=== PATIENT | female | born 1970 | race Caucasian/White ===

== ENCOUNTER 2020-09-10 07:58 | Outpatient (CLI) | payer OTHER, SELFPAY ==
--- NOTE | ~2020-09-10 | MM_ITS ---
EXAMINATION: MM screening sonal BI w christiano HISTORY: Screening TECHNIQUE: Craniocaudal and mediolateral oblique 3-D tomosynthesis images were obtained and synthetic 2-D images were generated. CAD analysis was submitted and interpreted. COMPARISON: Comparison to multiple prior studies sequentially, with oldest reviewed study dated 09/15. BREAST PARENCHYMAL COMPOSITION: There are scattered areas of fibroglandular density. FINDINGS: There is no evidence of suspicious mass, calcification, or architectural distortion to sugg est malignancy in either breast. There has been no suspicious interval change. IMPRESSION: 1. No mammographic evidence of malignancy. 2. Recommend routine screening mammography in one year. BI-RADS Category 1: Negative Reviewed, dictated and finalized at location A. ING MACHINE OPERATOR
== END 2020-09-10 07:59 | disposition home or self-care (01) ==
LOC: ANHIMG 08:00
PROVIDERS: PCP Family Medicine; Visit Provider Obstetrics & Gynecology
DX: Z12.31 Encounter for screening mammogram for malignant neoplasm of breast (principal)
CPT/HCPCS: 77063; 77067

== ENCOUNTER → 2021-06-09 15:07 | Outpatient (CLI) | payer OTHER, SELFPAY ==
--- NOTE | ~2021-06-09 | CT_ITS ---
EXAMINATION: CT abdomen pelvis wo con DATE: 06/09/2021 15:21 INDICATION: Gross hematuria. History of kidney stones. TECHNIQUE: Computed tomography (CT) of the abdomen and pelvis was performed without intravenous contr ast. Automated exposure control and iterative reconstruction technique were employed. Exam dose: 101 2.57 mGy-cm total exam DLP. COMPARISON: 02/06/2018 KUB FINDINGS: The lung bases are clear. Normal heart size. No pericardial or pleural effusion. There is patchy hepatic steatosis. No apparent hepatic space-occupying mass lesion is noted. Status post cholecystectomy. No bile duct or pancreatic duct dilatation. No pancreatic mass lesion or calcification. Normal splenic size. Normal morphology of the adrenal glands. Approximate 3 mm nonobstructing upper pole left renal calculus. Pinpoint lower pole nonobstructing le ft renal calculus. There are at least 2 calculi in the left renal pelvis, measuring approximately 4 mm and 7 mm cyst. No ureteral calculus or hydroureteronephrosis is noted on either side. No urinary bladder calculus. T he urinary bladder is not very distended, appearing unremarkable. The uterus and adnexal areas are un remarkable. Normal caliber of the abdominal aorta. No intraperitoneal or retroperitoneal or pelvic mass lesion or adenopathy or ascites. Status post appendectomy. Diverticulosis of the left colon; no CT evidence of diverticulitis. No ev l obstruction, bowel wall thickening, pneumatosis or intraperitoneal free air. Very small fat-containing umbilical hernia. No suspicious osteolytic or osteoblastic lesions are noted. IMPRESSION: Patchy hepatic steatosis 3 mm nonobstructing upper pole left renal calculus Pinpoint lower pole nonobstructing left renal calculus At least 2 left renal pelvic nonobstructing calculi No ureteral calculi or hydroureteronephrosis Status post cholecystectomy Status post appendectomy Diverticulosis of the colon; no CT evidence of diverticulitis Reviewed, dictated and finalized at Location A. Reviewed, dictated and finalized at location A.
== END ==
PROVIDERS: PCP Family Medicine; Visit Provider Physician Assistant
DX: R31.9 Hematuria, unspecified (principal); K76.0 Fatty (change of) liver, not elsewhere classified; N20.0 Calculus of kidney; Z90.49 Acquired absence of other specified parts of digestive tract; K57.90 Diverticulosis of intestine, part unspecified, without perforation or abscess without bleeding
CPT/HCPCS: 74176

== ENCOUNTER → 2021-06-27 11:58 | Outpatient (CLI) | payer OTHER, SELFPAY ==
--- NOTE | ~2021-06-27 | US_ITS ---
EXAMINATION: US retroperitoneal comp EXAM DATE: 06/27/2021 12:30 INDICATION: Left flank pain. Hematuria. TECHNIQUE: Multiple grayscale and Doppler images of the kidneys were obtained (by a technologist who performed the scan) and subsequently reviewed. There is no prior study for comparison. FINDINGS: Right kidney: There is normal contour and echogenicity. It measures 9.9 x 5.5 x 5.4 centimeters. Th ere are no focal renal lesions identified. There is no hydronephrosis. Left kidney: There is normal contour and echogenicity. It measures 11.6 x 6.5 x 5.7 centimeters. Th ere are no focal renal lesions identified. Mild left hydronephrosis. Bladder unremarkable. IMPRESSION: 1. Mild left hydronephrosis. Reviewed, dictated and finalized at location B.
--- NOTE | ~2021-06-27 | XR_ITS ---
EXAMINATION: XR abdomen/kub 1V EXAM DATE: 06/27/2021 12:43 INDICATION: Left flank pain. History kidney stones. TECHNIQUE: Frontal projection of the upper abdomen, frontal projection lower abdomen/pelvis for inter pretation. Comparison is made to prior examination from 02/06/2018. FINDINGS: There is expected amount of colonic stool and gas. No small bowel dilation, nonobstructiv e bowel gas pattern. There are no suspicious calcifications identified. There is no organomegaly suspected. There are mild bony degenerative changes. There are cholecystectomy clips. Lung bases ar e clear. IMPRESSION: Unremarkable abdomen x-ray exam. Reviewed, dictated and finalized at location B.
== END ==
PROVIDERS: PCP Family Medicine; Visit Provider Nurse Practitioner Adult Health
DX: R10.9 Unspecified abdominal pain (principal); N13.30 Unspecified hydronephrosis
CPT/HCPCS: 74018; 76770

== ENCOUNTER → 2021-07-10 13:43 | Outpatient (CLI) | payer OTHER, SELFPAY ==
--- NOTE | ~2021-07-10 | CT_ITS ---
EXAMINATION: CT abdomen pelvis wo/w con DATE: 07/10/2021 15:02 INDICATION: Gross hematuria. TECHNIQUE: Computed tomography (CT) of the abdomen and pelvis was performed without and with intraven ous contrast using a total of 130 mL Omnipaque-350 intravenous contrast with a double-bolus technique for simultaneous opacification of the renal parenchyma and renal collecting system. Automated exposu re control and iterative reconstruction technique were employed. The dose-length product was 2104.87 mGy-cm. COMPARISON: CT abdomen and pelvis 06/09/2021 FINDINGS: The visualized portions of the lung bases demonstrate mild atelectasis. No pleural effusion. The hear t size is normal. No pericardial effusion. There is diffuse hepatic steatosis. There are changes of c holecystectomy. The spleen, pancreas, and adrenal glands are normal. There is cortical thinning of ri ght kidney. There are cysts in the kidneys measuring up to 9 mm on the left. The right ureter is not well opacified distally, but is normal. There are 2 stones in left kidney measuring up to 3 mm. There is mild left hydronephrosis and hydroureter. There is a 5 mm stone in proximal left ureter. There is a 4 mm stone in distal left ureter. The bladder is not well distended. There is diverticulosis of th e colon without evidence of diverticulitis. There are changes of appendectomy. There are no pathologi esperanza enlarged lymph nodes. There is no free intraperitoneal fluid. There is mild thoracolumbar spond ylosis. IMPRESSION: 1. 5 mm and 4 mm stones in left ureter with mild left hydronephrosis and hydroureter. 2. Small nonobstructing left kidney stones. Reviewed, dictated and finalized at location A. DE ATTENDANT IMPRESSION: 1. 5 mm and 4 mm stones in left ureter with mild left hydronephrosis and hydrou reter. 2. Small nonobstructing left kidney stones.
--- NOTE | ~2021-07-10 | XR_ITS ---
EXAMINATION: XR abdomen/kub 1V DATE: 07/10/2021 14:32 INDICATION: Gross hematuria. TECHNIQUE: A supine view of the abdomen on 2 radiographs was obtained. COMPARISON: CT abdomen and pelvis 07/10/2021 FINDINGS: There are no dilated loops of bowel. There is an 8 x 5 mm stone in proximal left ureter. Th ere is a 4 mm stone in distal left ureter. There is a phlebolith in left pelvis. There is a 3 mm ston e in left kidney. Surgical clips in the right upper quadrant are likely from cholecystectomy. IMPRESSION: 1. Stones in left ureter and left kidney. Reviewed, dictated and finalized at location A. ROOM COURIER
[2021-07-10 14:33] LABS: Estimated Glomerular Filt Rate > 60
== END ==
PROVIDERS: PCP Family Medicine; Visit Provider Nurse Practitioner Adult Health
DX: R31.0 Gross hematuria (principal); N20.0 Calculus of kidney; N20.1 Calculus of ureter; N13.30 Unspecified hydronephrosis
CPT/HCPCS: 74018; 74178; Q9967

== ENCOUNTER → 2021-07-10 13:46 | Outpatient (CLI) | payer OTHER, SELFPAY ==
--- NOTE | ~2021-07-10 | XR_ITS ---
EXAMINATION: XR lumbar spine 6V w bending EXAM DATE: 07/10/2021 14:32 INDICATION: M54.9 - Dorsalgia, unspecified . TECHNIQUE: Lumber spine frontal, lateral, bilateral oblique projections. Coned down frontal and lat eral L5-S1 lumbar projections for interpretation. There is no prior study for comparison. FINDINGS: There is moderate lower lumbar, mild upper lumbar facet arthropathy. Mild lumbar dextroscol iosis. There are cholecystectomy clips. There is 2 mm anterolisthesis L4 on L5 on the neutral and ext ension projections which may increase to 3 mm on the flexion projection. No spondylolysis. Sacrum, sa croiliac joints, sacral arcuate lines are intact. There is mild lumbar disc disease. IMPRESSION: 1. Moderate lower, mild upper lumbar facet arthropathy. 2. Mild lumbar disc disease. 3. L4-5 grade 1 anterolisthesis. Reviewed, dictated and finalized at location A. EL OILER
== END ==
PROVIDERS: PCP Family Medicine; Visit Provider Family Medicine
DX: M54.9 Dorsalgia, unspecified (principal); M12.88 Other specific arthropathies, not elsewhere classified, other specified site; M51.86 Other intervertebral disc disorders, lumbar region; M43.16 Spondylolisthesis, lumbar region
CPT/HCPCS: 72114

== ENCOUNTER 2021-07-14 03:10 | Day surgery (SDC) | payer OTHER, SELFPAY ==
[2021-07-12 15:43] VITALS: BMI 35.4
--- NOTE | 2021-07-12 15:55 | PC.NURSE ---
Report to the Outpatient Waiting Room, entrance under the green pavilion located off [facility], at time 10:00 on date 07/14/21. OR Time: 12:00. - You and your visitor will be asked a series of questions to screen for COVID 19 for your protection. - A mask is required within the hospital. - Only one visitor is allowed at this time. Patient visitors will be guided where to wait when not with patient. Preoperative COVID Testing Requirements: No COVID Test needed if: (proof is required; if not received patient will have Rapid Test prior to entry) - Patient has received COVID Vaccine at least 14 days prior to procedure date or - Patient has positive COVID test result within last 90 days of surgery date. COVID Test needed if above criteria is not met If not COVID vaccinated a COVID test must be conducted within 72 hours of surgery and patient is asked to isolate self from time of testing until procedure. You will go to the [facility] [facility] for your COVID testing. The [employer] [facility] site is located at the corner of [address] [facility]. You will only be called if COVID results are positive and your surgeon may reschedule your elective surgery date. Patients may have clear liquids (water, carbonated beverages, clear teas, apple juice) until 3 hours prior to surgery with a maximum of 20 ounces. - No food from midnight until time of surgery - Infants may have breast milk until 4 hours before surgery, infant formula 6 hours prior to surgery. - Children will be allowed to drink immediately following surgery. If applicable, please bring a bottle or sippy cup to assist with drinking. Juice, water, soda, and popsicles are readily available. For infants on formula, please bring formula the day of surgery. Pacifiers are allowed. Take the following medications with a SIP of water the morning of surgery: ESTRADIOL, LEVOTHYROXINE, METOPROLOL Medications to discontinue per physician: VITAMINS/SUPPLEMENTS Date to take last dose: IMMEDIATELY Please no make-up, nail mozambican, hairspray, perfume, deodorant, or body powder the day of surgery. No jewelry (including any body piercings) or valuables the day of surgery, leave them at home. Please take a shower or bath the night before, or the morning of, surgery with an antibacterial soap. Wear comfortable, loose fitting clothing. Children are encouraged to wear pajamas. - Jewelry must be removed prior to entering the operating room. Rings and piercings that are not removed may be cut off. - The hospital will not accept responsibility for valuables. - Please leave all valuables, including medications, at home the day of surgery. If you are going home after surgery, a licensed special needs bus driver must drive you home. - NO public transportation without another adult. - We recommend that an adult stay with you for 24 hours following discharge. - We also recommend that you do not drive, make important decision, drink alcoholic beverages, or take any drugs that were not prescribed by your health care provider for at least 24 hours after your discharge time. For Pediatric surgeries, we recommend two adults accompany the child home (only one inside the building at this time). Follow any additional instructions given to you from your surgeon. Telephone instructions given to BENJAMÍN JACKSON and asked if any additional questions and then verbalized understanding. Patient advised to call surgeon office or pre surgery nurse liaison [phone] if any additional questions.
[2021-07-14] VITALS (8 sets, daily range): BP systolic 116–137; BP diastolic 71–77; PULSE 59–68; RESP 16–18; TEMP 36.3–36.7; O2SAT 94–100
--- NOTE | ~2021-07-14 | XR_ITS ---
EXAMINATION: XR retrograde pyelo w/stent LT DATE: 07/14/2021 11:50 INDICATION: Left internal ureteral stent placement TECHNIQUE: Fluoroscopic images from a left internal ureteral stent placement are submitted for review . 20 seconds of fluoroscopy time. FINDINGS: No prior studies for comparison. There is a left double-J internal ureteral stent projecting in expected position, with proximal [place] loop at the level of the renal pelvis and distal loop in the pelvis within the bladder lumen. IMPRESSION: 1. Left internal ureteral stent placement. Please refer to real-time procedural findings for detail s. Reviewed, dictated and finalized at location A. D TRANSIT OPERATOR IMPRESSION: 1. Left internal ureteral stent placement. Please refer to real-time procedur al findings for details.
--- NOTE | ~2021-07-14 | XR_ITS ---
EXAMINATION: XR abdomen/kub 1V INDICATION: Left kidney and ureteral stones TECHNIQUE: Supine views of the abdomen were obtained on 2 radiographs. COMPARISON: 07/10/2021 FINDINGS: The previously described stone in the mid ureter is not well demonstrated. There is a possi ble 4 mm stone projecting in the expected location of the left distal ureter. Punctate left nephrolit hiasis is noted. The bowel gas pattern is normal. The visualized lung bases are clear. Cholecystectom y clips are present in the right upper quadrant. IMPRESSION: 1. Possible 4 mm left distal ureteral stone. Reviewed, dictated and finalized at location D. RETORT OPERATOR
--- NOTE | 2021-07-14 09:19 | ECG_ITS ---
Measurements Intervals [place] Rate: 64 P: 12 VT: 187 QRS: 9 QRSD: 100 T: 26 QT: 421 QTc: 435 Interpretive Statements SINUS RHYTHM VOLTAGE CRITERIA FOR LVH BORDERLINE ST-T WAVE ABNORMALITY- ANT/INF LEADS BASELINE ARTIFACT- III, AVF BORDERLINE ECG Electronically Signed On 07-14-2021 15:19:46 ENTRY LEVEL ASSISTANT MANAGER by Patricio Álvarez D.O.
[2021-07-14] MEDS: LACTATED RINGERS 1,000 ML 30 ML IV CONT ×2 (09:45→12:05)
--- NOTE | 2021-07-14 09:57 | WPDANESEPPF ---
Anes - Initial Pre Proc Eval Procedure: Operation Date: 07/14/21 12:00 Proposed Procedures p Left Extracorporeal Shock Wave Lithotripsy - Bari Gee MD s Cystoscopy - Bari Gee MD Date/Time: 07/14/21 09:57 Surgeon: Bari Gee MD Pre Op Diagnosis: kidney stones Patient Data Age: 51 Gender: F Height: 1.65 m Weight: 96.62 kg Allergies Allergy/AdvReac Type Severity Reaction Status Date / Time amitriptyline Allergy Unknown Palpitation Verified 07/14/21 09:30 s doxycycline Allergy Unknown rash pin Verified 07/12/21 15:39 point dots arm Home Medications Medication Instructions Recorded Confirmed Type cetirizine 10 mg tablet 10 mg PO DAILY 08/10/19 07/12/21 History estradiol-norethindrone acet 0.5 1 tablet PO DAILY 08/10/19 07/12/21 History mg-0.1 mg tablet triamterene 37.5 0.5 tablet PO DAILY #90 tablet 04/13/20 07/12/21 Rx mg-hydrochlorothiazide 25 mg tablet atorvastatin 10 mg tablet See Rx Instructions .ROUTE 02/07/21 07/12/21 Rx .COMPLEX #90 tablet metoprolol tartrate 25 mg tablet See Rx Instructions .ROUTE 02/07/21 07/12/21 Rx .COMPLEX #180 tablet levothyroxine 100 mcg tablet See Rx Instructions .ROUTE 03/07/21 07/12/21 Rx .COMPLEX #90 tablet dextroamphetamine-amphetamine ER 30 mg PO DAILY #30 cap 06/27/21 07/12/21 Rx 30 mg 24hr capsule,extend release ascorbic acid (vitamin C) [Vitamin 500 mg PO DAILY 07/12/21 07/12/21 History C] cholecalciferol (vitamin D3) 125 mcg PO DAILY 07/12/21 07/12/21 History [Vitamin D3] multivitamin 1 tablet PO DAILY 07/12/21 07/12/21 History zinc 50 mg PO DAILY 07/12/21 07/12/21 History Laboratory Tests 07/14/21 07/14/21 09:52 09:52 PT Pending INR Pending APTT Pending Sodium Pending Potassium Pending Chloride Pending Carbon Dioxide Pending Anion Gap Pending BUN Pending Creatinine Pending Estim Creat Clear Calc Pending Estimated GFR Pending Glucose Pending Calcium Pending Patient hx anesthesia problems: none Family hx anesthesia problems: none Results Review: All pre-operative results and documents have been reviewed as part of the pre-operative evaluation. [facility] Past Medical History Medical History Hx of migraines Hypothyroidism (acquired) Mammogram normal (~10/31/13) Mixed hyperlipidemia Normal Papanicolaou smear (~07/06/11) Situational anxiety Surgical History Surgical History History of lithotripsy (~01/24/18) Family History Family History Mother Hypertension Diabetes mellitus Family history of elevated blood lipids Grandparent Family history of malignant neoplasm of kidney Family history of lung cancer Father Hypertension Family history of elevated blood lipids Social History Social History Smoking status: Never smoker Alcohol intake: never Substance use: never Substance use type: does not use Living arrangements: with family Spiritual care concerns: No Anes - Eval Final PreProcedure Day of Procedure 07/14/21 09:57 Patient weight: obese Heart: regular rate and rhythm Lungs: clear to auscultation Airway: Mallampati scale class II Neurological: alert and oriented Last oral intake: >/= 8 hours ASA classification: III Emergent: no Anesthetic plan: proceed Anesthesia type and monitoring: general LMA and standard monitoring Results Review: All pre-operative results and documents have been reviewed as part of the pre-operative evaluation. Informed Consent: The patient's anesthetic plan and its attendant risks and benefits were discussed with the patient/family/POA. Questions were solicit
[2021-07-14 10:08] LABS: Partial Thromboplastin Time 31.7 SECONDS (22.3-36.8); Prothrombin Time 12.7 Seconds (11.1-14.7)
[2021-07-14 10:11] LABS: Anion Gap 6 mmol/L (8-16); Blood Urea Nitrogen 14 mg/dL (7-17); Calcium 9.5 mg/dL (8.4-10.2); Carbon Dioxide 32 mmol/L (22-30); Chloride 101 mmol/L (98-107); Estimated CRCL calculation 94 ml/min; Estimated Glomerular Filt Rate > 60; Glucose 109 mg/dL (65-110); Potassium 3.6 mmol/L (3.4-5.0); Sodium 139 mmol/L (137-145)
--- NOTE | 2021-07-14 11:03 | WPDHPUPDATE1 ---
History and Physical Update Update Date/Time: 07/14/21 11:03 History and Physical has been reviewed, including an updated exam of the patient. There are NO changes in the patient's condition. Risks, benefits, and alternatives have been discussed and questions answered. Patient agrees to proceed with procedure. Left proximal ureteral stone a longer visualized on KUB. As such will proceed with cystoscopy, left retrograde pyelogram, left ureteroscopy with stone extraction, possible laser, stent placement
[2021-07-14] MEDS: ceFAZolin 2 GM/D5W 50 ML 2 GM/50 ML BAG IVPB (11:09)
[2021-07-14] MEDS: LIDOCAINE HCL 2% GEL UROJET 10 ML PKG MUCOUS MEM (11:30)
--- NOTE | 2021-07-14 11:51 | W.PM.PROC2 ---
Procedure Note - Detailed Date of Procedure 07/14/21 Pre-op Diagnosis Left ureteral stones 8 mm proximal as well as 4 mm distal Post-op Diagnosis same Procedure Performed Cystoscopy, left retrograde pyelogram, left ureteroscopy with stone extraction, holmium laser, stent placement 4.8 [place] contour Surgeon Bari Gee MD Description of Procedure Patient is taken to the operative suite and correctly identified. Once anesthesia was obtained was placed in dorsal lithotomy position and prepped and draped usual sterile fashion. Twenty-two [place] scope was inserted the bladder. There is no tumors noted. Left orifice was scan with a guidewire. Rigid ureteral scope was inserted. A 4-5 mm stone in the distal ureter was grasped with an escape basket retrieved entirety and sent for analysis. I then reinserted the ureteral scope. The 8 mm stone was lodged in the more proximal ureter. Using a 273 micron fiber we fragmented stone multiple pieces and then retrieved them and sent them for analysis. Pyelogram was then performed to confirm placement of the stent. 4.8 [place] contour stent was then placed with the proximal end coiled in the renal pelvis and the distal in the bladder. Bladder was drained. 2% viscous lidocaine was inserted urethra and patient is taken recovery stable condition. Patient will follow up in a week's time for stent removal. Drains Yes Packing No Pathology yes Complications No immediate complications Condition stable Disposition PACU
[2021-07-14] MEDS: oxyCODONE HCL (*CRX) 5 MG TAB IR PO (13:40)
== END 2021-07-14 13:46 | disposition home or self-care (01) ==
PROVIDERS: Anesthesiology; PCP Family Medicine; Visit Provider Urology
PROC: (CPT 50590; principal; 2021-07-14 12:00)
DX: N20.1 Calculus of ureter (principal); E03.9 Hypothyroidism, unspecified; E78.2 Mixed hyperlipidemia; E66.9 Obesity, unspecified; Z68.35 Body mass index [BMI] 35.0-35.9, adult
CPT/HCPCS: 52356; 36415; 74018; 74420; 80048; 82365; 85610; 85730; 87086; 88300; 93005; A9270; C1769; C2617; J0690; J1100; J2250; J2405; J2704; J3010; J7120; Q9966

== ENCOUNTER 2021-11-18 07:58 | Outpatient (CLI) | payer OTHER, SELFPAY ==
--- NOTE | ~2021-11-18 | MM_ITS ---
EXAMINATION: MM screening sonal BI w christiano HISTORY: Screening mammogram TECHNIQUE: Craniocaudal and mediolateral oblique 3-D tomosynthesis images were obtained and synthetic 2-D images were generated. CAD analysis was submitted and interpreted. COMPARISON: September 10, 2020, August 15, 2019, May 03, 2018 bilateral screening mammogram exami [place] BREAST PARENCHYMAL COMPOSITION: There are scattered areas of fibroglandular density. FINDINGS: There is no evidence of suspicious mass, calcification, or architectural distortion to sugg est malignancy in either breast. There has been no suspicious interval change. IMPRESSION: 1. No mammographic evidence of malignancy. 2. Recommend routine screening mammography in one year. BI-RADS Category 1: Negative Reviewed, dictated and finalized at location A.
== END 2021-11-18 07:59 | disposition home or self-care (01) ==
LOC: ANHIMG 07:59
PROVIDERS: PCP Family Medicine; Visit Provider Obstetrics & Gynecology
DX: Z12.31 Encounter for screening mammogram for malignant neoplasm of breast (principal)
CPT/HCPCS: 77063; 77067

== ENCOUNTER 2022-07-10 10:58 | Day surgery (SDC) | payer OTHER, SELFPAY ==
[2022-04-17 08:06] VITALS: BMI 36.8
[2022-06-26 10:26] VITALS: BMI 36.6
[2022-07-10 11:19] VITALS: BP 143/88; PULSE 84; RESP 16; TEMP 36.6; O2SAT 100
--- NOTE | 2022-07-10 11:27 | PM.HPGS ---
History of Present Illness History of Present Illness Consent: Risks, benefits, and alternatives have been discussed and questions answered. Patient agrees to proceed with procedure. Chief complaint: Neoplam Screening Narrative: Gi Sanderson is a 52 year old female Presents for screening colonoscopy. Patient's current weight appetite and bowel movements are normal. Patient denies abdominal pain. She has had no bleeding. Family history is noncontributory. Patient presents today for screening colonoscopy. Review of Systems Review of Systems: Review of systems noncontributory. [facility] Past Medical History Medical History Hx of migraines Hypothyroidism (acquired) Mammogram normal (~10/31/13) Mixed hyperlipidemia Normal Papanicolaou smear (~07/06/11) Situational anxiety Surgical History Surgical History History of lithotripsy (~01/24/18) Family History Family History Mother Hypertension Diabetes mellitus Family history of elevated blood lipids Grandparent Family history of malignant neoplasm of kidney Family history of lung cancer Father Hypertension Family history of elevated blood lipids Social History Social History Smoking status: Never smoker Alcohol intake: never Substance use: never Substance use type: does not use Living arrangements: with family Spiritual care concerns: No Meds Home Medications and Allergies Home Medications Medication Instructions Recorded Confirmed Type cetirizine 10 mg tablet 10 mg PO DAILY 08/10/19 07/10/22 History estradiol-norethindrone acet 0.5 1 tablet PO DAILY 08/10/19 07/10/22 History mg-0.1 mg tablet (Lopreeza) ascorbic acid (vitamin C) 500 mg 500 mg PO DAILY 07/12/21 07/10/22 History tablet (Vitamin C) cholecalciferol (vitamin D3) 125 125 mcg PO DAILY 07/12/21 07/10/22 History mcg (5,000 unit) tablet (Vitamin D3) multivitamin 1 tablet PO DAILY 07/12/21 07/10/22 History zinc 50 mg tablet 50 mg PO DAILY 07/12/21 07/10/22 History atorvastatin 10 mg tablet See Rx Instructions .Route 12/19/21 07/10/22 Rx .COMPLEX #90 tabs levothyroxine 100 mcg tablet See Rx Instructions .Route 12/19/21 07/10/22 Rx .COMPLEX #90 tabs metoprolol tartrate 25 mg tablet See Rx Instructions .Route 12/19/21 07/10/22 Rx .COMPLEX #180 tabs triamterene 37.5 See Rx Instructions .Route 12/27/21 07/10/22 Rx mg-hydrochlorothiazide 25 mg tablet .COMPLEX #90 tabs peg 3350-electrolytes 236 240 ml PO Q10M #4,000 mL 04/17/22 07/10/22 Rx gram-22.74 gram-6.74 gram-5.86 gram solution (Golytely) magnesium 200 mg tablet 400 mg PO DAILY 06/26/22 07/10/22 History dextroamphetamine-amphetamine ER 30 mg PO DAILY #30 caps 06/28/22 07/10/22 Rx 30 mg 24hr capsule,extend release (Adderall XR) Allergies Allergy/AdvReac Type Severity Reaction Status Date / Time amitriptyline Allergy Unknown Palpitation Verified 07/10/22 11:15 s doxycycline Allergy Unknown rash pin Verified 07/10/22 11:15 point dots arm Vital Signs Vital Signs - 24 hr 07/10/22 11:19 Temperature 97.9 F Pulse Rate 84 Respiratory Rate 16 Blood Pressure 143/88 H Pulse Oximetry 100 Oxygen Delivery Room Air Exam Narrative: Physical exam reveals patient be alert. Vital signs stable. HEENT exam is unremarkable. Patient is anicteric. Lungs are clear to auscultation and percussion. Heart is without murmur or extra sounds. Abdomen bowel sounds are present soft nontender with no organomegaly. Digital external rectal exam is normal. Assessment and Plan Assessment and plan (1) Encounter for screening colonoscopy: Code(s): Z12.11 - Encounter for screening for malignant neoplasm of colon Status: Acute Assessment and Plan:
--- NOTE | 2022-07-10 11:35 | WPDANESEPPF ---
Anes - Initial Pre Proc Eval Procedure: Operation Date: 07/10/22 12:30 Proposed Procedures p Screening Colonoscopy - Juan David Ye MD Date/Time: 07/10/22 11:35 Surgeon: Juan David Ye MD Pre Op Diagnosis: Neoplam Screening Patient Data Age: 52 Gender: F Height: 1.65 m Weight: 98.1 kg Last Vital Signs Temp 36.6 C 07/10/22 11:19 Pulse 84 07/10/22 11:19 Resp 16 07/10/22 11:19 BP 143/88 H 07/10/22 11:19 Pulse Ox 100 07/10/22 11:19 O2 Del Method Room Air 07/10/22 11:19 Allergies Allergy/AdvReac Type Severity Reaction Status Date / Time amitriptyline Allergy Unknown Palpitation Verified 07/10/22 11:15 s doxycycline Allergy Unknown rash pin Verified 07/10/22 11:15 point dots arm Home Medications Medication Instructions Recorded Confirmed Type cetirizine 10 mg tablet 10 mg PO DAILY 08/10/19 07/10/22 History estradiol-norethindrone acet 0.5 1 tablet PO DAILY 08/10/19 07/10/22 History mg-0.1 mg tablet (Lopreeza) ascorbic acid (vitamin C) 500 mg 500 mg PO DAILY 07/12/21 07/10/22 History tablet (Vitamin C) cholecalciferol (vitamin D3) 125 125 mcg PO DAILY 07/12/21 07/10/22 History mcg (5,000 unit) tablet (Vitamin D3) multivitamin 1 tablet PO DAILY 07/12/21 07/10/22 History zinc 50 mg tablet 50 mg PO DAILY 07/12/21 07/10/22 History atorvastatin 10 mg tablet See Rx Instructions .Route 12/19/21 07/10/22 Rx .COMPLEX #90 tabs levothyroxine 100 mcg tablet See Rx Instructions .Route 12/19/21 07/10/22 Rx .COMPLEX #90 tabs metoprolol tartrate 25 mg tablet See Rx Instructions .Route 12/19/21 07/10/22 Rx .COMPLEX #180 tabs triamterene 37.5 See Rx Instructions .Route 12/27/21 07/10/22 Rx mg-hydrochlorothiazide 25 mg tablet .COMPLEX #90 tabs peg 3350-electrolytes 236 240 ml PO Q10M #4,000 mL 04/17/22 07/10/22 Rx gram-22.74 gram-6.74 gram-5.86 gram solution (Golytely) magnesium 200 mg tablet 400 mg PO DAILY 06/26/22 07/10/22 History dextroamphetamine-amphetamine ER 30 mg PO DAILY #30 caps 06/28/22 07/10/22 Rx 30 mg 24hr capsule,extend release (Adderall XR) Patient hx anesthesia problems: none Family hx anesthesia problems: none Results Review: All pre-operative results and documents have been reviewed as part of the pre-operative evaluation. [facility] Past Medical History Medical History Benign hypertension Hx of migraines Hypothyroidism (acquired) Mammogram normal (~10/31/13) Mixed hyperlipidemia Normal Papanicolaou smear (~07/06/11) Situational anxiety Surgical History Surgical History History of lithotripsy (~01/24/18) Family History Family History Mother Hypertension Diabetes mellitus Family history of elevated blood lipids Grandparent Family history of malignant neoplasm of kidney Family history of lung cancer Father Hypertension Family history of elevated blood lipids Social History Social History Smoking status: Never smoker Alcohol intake: never Substance use: never Substance use type: does not use Living arrangements: with family Spiritual care concerns: No Anes - Eval Final PreProcedure Day of Procedure 07/10/22 11:35 Patient weight: obese Heart: regular rate and rhythm Lungs: clear to auscultation Airway: Mallampati scale class II Neurological: alert and oriented Last oral intake: >/= 8 hours ASA classification: III Emergent: no Anesthetic plan: proceed Anesthesia type and monitoring: general GIVS and standard monitoring Results Review: All pre-operative results and documents have been reviewed as part of the pre-operative evaluation. Informed Consent: The patient's anesthetic plan and its attendant risks and benefits were discussed with the patient
[2022-07-10] MEDS: LACTATED RINGERS 1,000 ML 150 ML IV CONT (11:36)
[2022-07-10 12:23] VITALS: BP 113/69; PULSE 74; RESP 12; O2SAT 100
[2022-07-10 12:33] VITALS: BP 112/65; PULSE 75; RESP 12; O2SAT 100
[2022-07-10 12:43] VITALS: BP 124/71; PULSE 76; RESP 13; O2SAT 100
--- NOTE | 2022-07-10 12:53 | WPDANESPN ---
Anes - Prog Note Post-Op Date/Time: 07/10/22 12:53 Cardiovascular status: normal Respiratory status: normal Airway patency: baseline Mental status: baseline Post-Op hydration status: normal Vital Signs: Last Vital Signs Temp 36.6 C 07/10/22 11:19 Pulse 75 07/10/22 12:33 Resp 12 07/10/22 12:33 BP 112/65 07/10/22 12:33 Pulse Ox 100 07/10/22 12:33 O2 Del Method Room Air 07/10/22 12:33 Pain Score (VAS): 0 I/O: Intake & Output 07/09/22 07/10/22 07/10/22 23:59 07:59 15:59 Intake Total 300 Balance 300 Patient Feedback: Patient satisfied with anesthetic care.
== END 2022-07-10 13:00 | disposition home or self-care (01) ==
PROVIDERS: PCP Emergency Medicine; Visit Provider Internal Medicine Gastroenterology
PROC: 0DJD8ZZ Inspection of Lower Intestinal Tract, Via Natural or Artificial Opening Endoscopic (ICD-10-PCS; CPT 45378; principal; 2022-07-10 12:30)
DX: Z12.11 Encounter for screening for malignant neoplasm of colon (principal)
CPT/HCPCS: 45378

== ENCOUNTER 2022-11-26 15:32 | Outpatient (CLI) | payer OTHER, SELFPAY ==
--- NOTE | 2022-11-26 15:30 | ECG_ITS ---
Measurements Intervals [place] Rate: 74 P: 35 SC: 160 QRS: 8 QRSD: 101 T: 30 QT: 383 QTc: 426 Interpretive Statements SINUS RHYTHM LEFT VENTRICULAR HYPERTROPHY BASELINE ARTIFACT- I, II, III, AVR, AVL, AVF, V4-V6 BORDERLINE ECG COMPARED TO ECG 07/14/2021 10:09:16 NO SIGNIFICANT CHANGES Electronically Signed On 11-26-2022 16:31:26 CDT by Patricio Álvarez D.O.
[2022-11-26 16:18] LABS: Partial Thromboplastin Time 29.3 SECONDS (22.3-36.8); Prothrombin Time 12.8 Seconds (11.1-14.7)
== END 2022-11-26 15:33 | disposition home or self-care (01) ==
LOC: ANHSURGERY 15:36
PROVIDERS: PCP Emergency Medicine; Visit Provider Urology
DX: N20.1 Calculus of ureter (principal); E78.2 Mixed hyperlipidemia; Z01.818 Encounter for other preprocedural examination
CPT/HCPCS: 36415; 85610; 85730; 87086; 87088; 93005

== ENCOUNTER 2022-11-30 02:10 | Day surgery (SDC) | payer OTHER, SELFPAY ==
[2022-11-22 10:19] VITALS: BMI 36.6
--- NOTE | 2022-11-22 10:26 | PC.NURSE ---
Report to the Outpatient Waiting Room, entrance under the green pavilion located off [facility], at time 7:30 on date 11/30/22. Planned Procedure Time: 9:30. Time changes happen often and if your time is changed the preop area will call you the afternoon before. - You and your visitor will be asked to self-screen and do not enter if you have any COVID symptoms. - Only one visitor is requested with a max of two and NO children visitors are allowed at this time. - The patient visitor may be requested to leave or wait in car when not with patient due to distancing restrictions. - A mask is optional within the hospital at this time. Patients may have clear liquids (water, carbonated beverages, clear teas, apple juice) until 3 hours prior to surgery with a maximum of 20 ounces. - No food from midnight until time of surgery Take the following medications with a SIP of water the morning of surgery: LEVOTHYROXINE, METOPROLOL, ANTIBIOTIC (IF STILL TAKING) DO NOT STOP ANY OF YOUR OTHER PRESCRIPTION MEDICATIONS PRIOR TO SURGERY EXCEPT THE FOLLOWING Medications to discontinue per physician: VITAMINS/SUPPLEMENTS Date to take last dose: 11/26/22 Please no make-up, nail bulgarian, hairspray, perfume, deodorant, or body powder the day of surgery. No jewelry (including any body piercings) or valuables the day of surgery, leave them at home. Please take a shower or bath the night before, or the morning of, surgery with an antibacterial soap. Wear comfortable, loose fitting clothing. - Jewelry must be removed prior to entering the operating room. Rings and piercings that are not removed may be cut off. - The hospital will not accept responsibility for valuables. - Please leave all valuables, including medications, at home the day of surgery. If you are going home after surgery, a licensed stage driver must drive you home. - NO public transportation without another adult if you receive anesthesia. - We recommend that an adult stay with you for 24 hours following discharge. - We also recommend that you do not drive, make important decision, drink alcoholic beverages, or take any drugs that were not prescribed by your health care provider for at least 24 hours after your discharge time. Follow any additional instructions given to you from your surgeon. If you or anyone in your household have experienced Covid symptoms in the past week, please notify your surgeon or the nurse liaison at the phone number below for possible testing. Telephone instructions given to PT - BENJAMÍN JACKSON and asked if any additional questions and then verbalized understanding. Patient advised to call surgeon office or pre surgery nurse liaison [phone] if any additional questions.
[2022-11-30] VITALS (10 sets, daily range): BP systolic 106–134; BP diastolic 61–71; PULSE 68–82; RESP 14–20; TEMP 36.3–36.5; O2SAT 92–100
--- NOTE | ~2022-11-30 | CT_ITS ---
EXAMINATION: CT abdomen pelvis wo con DATE: 11/30/2022 08:38 INDICATION: Left kidney stone. TECHNIQUE: Computed tomography (CT) of the abdomen and pelvis was performed without intravenous contr ast. Automated exposure control and iterative reconstruction technique were employed. The dose-length product was 472.10 mGy-cm. COMPARISON: CT abdomen and pelvis 07/10/2021 FINDINGS: The visualized portions of the lung bases demonstrate mild atelectasis. No pleural effusion . The heart size is normal. No pericardial effusion. There is diffuse hepatic steatosis. There are ch anges of cholecystectomy. The pancreas, spleen, adrenal glands, and right kidney are normal. There is mild left hydronephrosis. There is a left internal ureteral stent in expected position. There is a 2 mm stone in proximal left ureter at L3-L4. There is diverticulosis of the colon without evidence of diverticulitis. There are no dilated loops of bowel. There are likely changes of appendectomy. There are no pathologically enlarged lymph nodes. There is no free intraperitoneal fluid. IMPRESSION: 1. 2 mm stone in proximal left ureter at L3-L4. Left internal ureteral stent in expected position. Mi ld left hydronephrosis. Reviewed, dictated and finalized at location A. IMPRESSION: 1. 2 mm stone in proximal left ureter at L3-L4. Left internal ureteral stent in expected position. Mild left hydronephrosis.
--- NOTE | ~2022-11-30 | XR_ITS ---
Supine and upright views of the abdomen Clinical history: Lithotripsy COMPARISON: 07/14/2021 Findings: Bowel gas pattern is nonspecific. No evidence for obstruction or free air. Left ureteral st ent in place. No abnormal mass lesion or calcification is seen. Osseous structures are intact. Impression: Left ureteral stent. No definite stones identified. Reviewed, dictated and finalized at [facility]. Impression: Left ureteral stent. No definite stones identified.
--- NOTE | ~2022-11-30 | XR_ITS ---
EXAMINATION: XR retrograde pyelo w/stent LT DATE: 11/30/2022 10:37 INDICATION: Left ureteral stone. TECHNIQUE: 4 intraoperative fluoroscopic views of the abdomen and pelvis were obtained. I was not pre sent. Fluoroscopy exposure time was 14 seconds. COMPARISON: CT abdomen and pelvis 11/30/2022 FINDINGS: The left internal ureteral stent was removed. The left-sided retrograde pyelogram demonstra paradise mild hydronephrosis. The final images demonstrate a new left internal ureteral stent in expected position. IMPRESSION: 1. New left internal ureteral stent in expected position. Reviewed, dictated and finalized at location A.
[2022-11-30] MEDS: LACTATED RINGERS 1,000 ML 30 ML IV CONT (08:21)
--- NOTE | 2022-11-30 08:56 | WPDHPUPDATE1 ---
History and Physical Update Update Date/Time: 11/30/22 08:56 History and Physical has been reviewed, including an updated exam of the patient. There are NO changes in the patient's condition. Risks, benefits, and alternatives have been discussed and questions answered. Patient agrees to proceed with procedure. Stone poorly visible on kub. Will proceed with cysto, left retrograde, left uerteroscopy with stone extraction , possible laser, possible stent exchange.
--- NOTE | 2022-11-30 09:22 | WPDANESEPPF ---
Anes - Initial Pre Proc Eval Procedure: Operation Date: 11/30/22 09:30 Proposed Procedures p Left Extracorporeal Shock Wave Lithotripsy - Bari Gee MD Date/Time: 11/30/22 09:22 Surgeon: Bari Gee MD Pre Op Diagnosis: left ureteral stones Patient Data Age: 52 Gender: F Height: 1.65 m Weight: 96.7 kg Last Vital Signs Temp 36.5 C 11/30/22 08:22 Pulse 71 11/30/22 08:22 Resp 16 11/30/22 08:22 BP 126/69 11/30/22 08:22 Pulse Ox 98 11/30/22 08:22 O2 Del Method Room Air 11/30/22 08:22 Allergies Allergy/AdvReac Type Severity Reaction Status Date / Time amitriptyline Allergy Unknown Palpitation Verified 11/30/22 07:55 s doxycycline Allergy Unknown rash pin Verified 11/30/22 07:55 point dots arm Home Medications Medication Instructions Recorded Confirmed Type cetirizine 10 mg tablet 10 mg PO DAILY 08/10/19 11/30/22 History estradiol-norethindrone acet 0.5 1 tablet PO DAILY 08/10/19 11/30/22 History mg-0.1 mg tablet (Lopreeza) ascorbic acid (vitamin C) 500 mg 500 mg PO DAILY 07/12/21 11/30/22 History tablet (Vitamin C) cholecalciferol (vitamin D3) 125 125 mcg PO DAILY 07/12/21 11/30/22 History mcg (5,000 unit) tablet (Vitamin D3) zinc 50 mg tablet 50 mg PO DAILY 07/12/21 11/30/22 History atorvastatin 10 mg tablet See Rx Instructions .Route 12/19/21 11/30/22 Rx .COMPLEX #90 tabs levothyroxine 100 mcg tablet See Rx Instructions .Route 12/19/21 11/30/22 Rx .COMPLEX #90 tabs metoprolol tartrate 25 mg tablet See Rx Instructions .Route 12/19/21 11/30/22 Rx .COMPLEX #180 tabs triamterene 37.5 See Rx Instructions .Route 12/27/21 11/30/22 Rx mg-hydrochlorothiazide 25 mg tablet .COMPLEX #90 tabs magnesium 200 mg tablet 400 mg PO DAILY 06/26/22 11/30/22 History dextroamphetamine-amphetamine ER 30 mg PO DAILY #30 caps 11/13/22 11/30/22 Rx 30 mg 24hr capsule,extend release (Adderall XR) cefdinir 300 mg capsule 300 mg PO Q12H 11/22/22 11/30/22 History Patient hx anesthesia problems: none Family hx anesthesia problems: none Results Review: All pre-operative results and documents have been reviewed as part of the pre-operative evaluation. [facility] Past Medical History Medical History Benign hypertension Hx of migraines Hypothyroidism (acquired) Mammogram normal (~10/31/13) Mixed hyperlipidemia Normal Papanicolaou smear (~07/06/11) Situational anxiety Surgical History Surgical History History of lithotripsy (~01/24/18) Family History Family History Mother Hypertension Diabetes mellitus Family history of elevated blood lipids Grandparent Family history of malignant neoplasm of kidney Family history of lung cancer Father Hypertension Family history of elevated blood lipids Social History Social History Smoking status: Never smoker Alcohol intake: never Substance use: never Substance use type: does not use Living arrangements: with family Spiritual care concerns: No Anes - Eval Final PreProcedure Day of Procedure 11/30/22 09:22 Patient weight: obese Heart: regular rate and rhythm Lungs: clear to auscultation Airway: Mallampati scale class II Neurological: alert and oriented Last oral intake: >/= 8 hours ASA classification: III Emergent: no Anesthetic plan: proceed Anesthesia type and monitoring: general LMA and standard monitoring Results Review: All pre-operative results and documents have been reviewed as part of the pre-operative evaluation. Informed Consent: The patient's anesthetic plan and its attendant risks and benefits were discussed with the patient/family/POA. Questions were solicited and answers provided to the satisfaction of the patient/family/POA.
[2022-11-30] MEDS: ceFAZolin 2 GM/D5W 50 ML 2 GM/50 ML BAG IVPB (09:59)
[2022-11-30] MEDS: LIDOCAINE HCL 2% GEL UROJET 10 ML PKG MUCOUS MEM (10:10)
--- NOTE | 2022-11-30 10:33 | P.OP_ITS ---
Procedure Note - Detailed Date of Procedure 11/30/22 Pre-op Diagnosis left ureteral stones Post-op Diagnosis Same Procedure Performed Cystoscopy, left retrograde pyelogram, left ureteroscopy with stone extraction, left stent exchange 4.8 Bhutanese contour Surgeon Bari Gee MD Anesthesia General Description of Procedure Patient is taken to the operative suite correctly identified. Once anesthesia was obtained she was placed in dorsal lithotomy position and prepped draped usual sterile fashion. Twenty-two Bhutanese scope was inserted the bladder. There is no tumors noted. Left ureteral stent was grasped and brought out to the meatus. Bentson wire was inserted through the stent. Mini flexible ureteral scope was then placed. The stone was visualized in the proximal ureter. Using escape basket we were able to retrieve the stone. I should state that I had placed a ureteral access sheath and in addition. Reinspection reveals some small little clots. She does have edema in the ureter. Given this we decided to place a stent. Pyelogram was performed to confirm placement of the stent. 4.8 Bhutanese contour stent was then placed with the proximal end coiled in the renal pelvis and the distal in the bladder. Bladder was drained. 2% viscous lidocaine was inserted urethra patient is taken recovery room stable condition. She will follow-up in a week's time for stent removal is to call for that appointment. Please send a copy this op note to my office Estimated Blood Loss 0 Drains Yes Packing No Pathology Yes Complications No immediate complications Condition Stable Disposition PACU
[2022-11-30] MEDS: fentaNYL CITRATE INJ (*CRX) 100 MCG/2 ML VIAL 25 MCG IV PUSH ×4 (11:05→11:25)
[2022-11-30] MEDS: ACETAMINOPHEN 500 MG TABLET 1000 MG PO (12:18)
== END 2022-11-30 13:00 | disposition home or self-care (01) ==
PROVIDERS: PCP Emergency Medicine; Visit Provider Urology
PROC: (CPT 50590; principal; 2022-11-30 09:30)
DX: N20.1 Calculus of ureter (principal); E78.2 Mixed hyperlipidemia; E03.9 Hypothyroidism, unspecified; I10 Essential (primary) hypertension; E66.9 Obesity, unspecified; Z68.35 Body mass index [BMI] 35.0-35.9, adult
CPT/HCPCS: 52332; 52352; 36415; 74018; 74176; 74420; 82365; 85610; 85730; 87086; 88300; 93005; A9270; C1769; C1894; C2617; J0690; J1100; J2250; J2405; J2704; J3010; J7120

== ENCOUNTER 2023-01-26 08:17 | Outpatient (CLI) | payer OTHER, SELFPAY ==
--- NOTE | ~2023-01-26 | MM_ITS ---
EXAMINATION: MM screening sonal BI w christiano HISTORY: Screening mammogram TECHNIQUE: Craniocaudal and mediolateral oblique 3-D tomosynthesis images were obtained and synthetic 2-D images were generated. CAD analysis was submitted and interpreted. COMPARISON: 11/18/2021, 09/10/2020, 08/15/2019 bilateral screening mammogram examinations BREAST PARENCHYMAL COMPOSITION: There are scattered areas of fibroglandular density. FINDINGS: There is no evidence of suspicious mass, calcification, or architectural distortion to sugg est malignancy in either breast. There has been no suspicious interval change. IMPRESSION: 1. No mammographic evidence of malignancy. 2. Recommend routine screening mammography in one year. BI-RADS Category 1: Negative Reviewed, dictated and finalized at location A.
== END 2023-01-26 08:18 | disposition home or self-care (01) ==
PROVIDERS: PCP Emergency Medicine; Visit Provider Obstetrics & Gynecology
DX: Z12.31 Encounter for screening mammogram for malignant neoplasm of breast (principal)
CPT/HCPCS: 77063; 77067

== ENCOUNTER 2023-05-24 07:46 | Outpatient (CLI) | payer OTHER, SELFPAY ==
--- NOTE | ~2023-05-24 | CT_ITS ---
CT of the Abdomen and Pelvis: Indication: Hydronephrosis Technique: 2.5 mm axial scans were obtained through the abdomen and pelvis prior to and following fo llowing intravenous administration of 130 cc of Omnipaque 350. Dose reduction technique was used on t his scan by utilizing automated exposure control and iterative reconstruction technique. The dose-mary gth product (DLP) was 2618.83 mGy-cm. COMPARISON: 11/30/2022 Findings: Scans through the lung bases are unremarkable. There is diffuse fatty infiltration of the liver. Cholecystectomy clips are present. The spleen, panc reas, adrenal glands are within normal limits. There are probable mild bilateral extra renal pelves, without sulaiman hydronephrosis. No evidence of aortic aneurysm. No lymphadenopathy. No bowel obstruction or bowel wall thickening. There is no evidence to suggest acute appendicitis. Images through the pelvis were performed. Urinary bladder unremarkable. Small bilateral adnexal cysts are present. No ascites. Impression: Probable extrarenal pelves without definite sulaiman hydronephrosis. No significant abnormality of the u rinary system evident. Diffuse fatty infiltration of liver. Small bilateral adnexal cysts. Reviewed, dictated and finalized at location . Impression: Probable extrarenal pelves without definite sulaiman hydronephrosis. No significan t abnormality of the urinary system evident. Diffuse fatty infiltration of liver. Small bilateral adnexal cysts.
--- NOTE | ~2023-05-24 | XR_ITS ---
Supine and upright views of the abdomen Clinical history: Hydronephrosis COMPARISON: 11/30/2022 Findings: Bowel gas pattern is nonspecific. No evidence for obstruction or free air. Oh cystectomy cl ips noted. No abnormal mass lesion or calcification is seen. Osseous structures are intact. Impression: No significant abnormality is seen. Reviewed, dictated and finalized at [facility]. Impression: No significant abnormality is seen.
[2023-05-24 08:18] LABS: Estimated Glomerular Filt Rate > 60
== END 2023-05-24 07:47 | disposition home or self-care (01) ==
PROVIDERS: PCP Emergency Medicine; Visit Provider Urology
DX: N13.30 Unspecified hydronephrosis (principal); K76.0 Fatty (change of) liver, not elsewhere classified
CPT/HCPCS: 74018; 74178; Q9967

== ENCOUNTER 2024-01-24 10:14 | Outpatient (CLI) | payer OTHER, SELFPAY ==
[2024-01-24 13:46] LABS: Hemoglobin A1C 5.9 % (<5.7)
[2024-01-24 15:00] LABS: Alanine Aminotransferase 41 U/L (6-35); Albumin Level 4.4 g/dL (3.5-5.1); Alkaline Phosphatase 79 U/L (38-126); Anion Gap 5 mmol/L (4-12); Aspartate Amino Transferase 74 U/L (14-36); Bilirubin,Total 1.9 mg/dL (0.2-1.3); Blood Urea Nitrogen 16 mg/dL (7-17); Calcium 9.4 mg/dL (8.4-10.2); Carbon Dioxide 32 mmol/L (22-30); Chloride 99 mmol/L (98-107); Cholesterol 212 mg/dL (0-200); Estimated Glomerular Filt Rate > 60; Glucose 105 mg/dL (65-110); HDL Direct 41 mg/dL; Potassium 3.4 mmol/L (3.4-5.0); Sodium 136 mmol/L (137-145); Triglycerides 204 mg/dL (<150)
[2024-01-24 15:12] LABS: LDL Cholesterol Direct 134 mg/dL
[2024-01-24 16:27] LABS: Free T4 Free Thyroxine 1.32 ng/mL (0.78-2.19); Vitamin D 25 Hydroxy 36.9 ng/mL
== END 2024-01-24 10:15 | disposition home or self-care (01) ==
LOC: ANHGOSHLAB 10:16
PROVIDERS: PCP Emergency Medicine; Visit Provider Emergency Medicine
DX: E03.9 Hypothyroidism, unspecified (principal); E78.2 Mixed hyperlipidemia; R53.82 Chronic fatigue, unspecified
CPT/HCPCS: 36415; 80053; 80061; 82306; 82607; 83036; 84439; 84443; 84480

== ENCOUNTER 2024-02-21 07:33 | Outpatient (CLI) | payer OTHER, SELFPAY ==
--- NOTE | ~2024-02-21 | US_ITS ---
US abdomen limited INDICATION: Abnormal laboratory values PROCEDURE: Realtime right upper abdominal ultrasound. COMPARISON: No prior studies for comparison. FINDINGS: The pancreas is normal without focal mass or pancreatic ductal dilation. Liver echotexture is diffusely increased, consistent with fatty infiltration. There is normal directional flow in the portal vein. Gallbladder is surgically absent. Common bile duct measures 4.6 mm. No sonographic Chauhan's sign. IMPRESSION: 1: Fatty infiltration of the liver. Reviewed, dictated and finalized at location B.
== END 2024-02-21 07:34 | disposition home or self-care (01) ==
PROVIDERS: PCP Emergency Medicine; Visit Provider Emergency Medicine
DX: R74.8 Abnormal levels of other serum enzymes (principal); K76.0 Fatty (change of) liver, not elsewhere classified
CPT/HCPCS: 36415; 76705; 80069; 80074; 81001; 82570; 84156; 84550

== ENCOUNTER 2024-02-21 08:22 | Outpatient (CLI) | payer OTHER, SELFPAY ==
[2024-02-21 19:13] LABS: Albumin Level 4.3 g/dL (3.5-5.1); Anion Gap 7 mmol/L (4-12); Blood Urea Nitrogen 13 mg/dL (7-17); Calcium 9.4 mg/dL (8.4-10.2); Carbon Dioxide 34 mmol/L (22-30); Chloride 99 mmol/L (98-107); Estimated Glomerular Filt Rate > 60; Glucose 132 mg/dL (65-110); Phosphorus 2.4 mg/dL (2.5-4.5); Potassium 3.3 mmol/L (3.4-5.0); Sodium 140 mmol/L (137-145); Uric Acid 6.2 mg/dL (2.5-7.5)
[2024-02-21 19:18] LABS: Creatinine Urine 474.3 mg/dL
[2024-02-21 19:19] LABS: Add Urine Microscopic? YES; Bacteria Urine 1+ /hpf; RBC Urine 0-2 /hpf (0-2); WBC Urine 0-5 /hpf (0-3)
[2024-02-21 19:20] LABS: Appearance Urine Sl Cloudy (Clear); Blood Urine Negative (Negative); Glucose Urine UA Negative (Negative); Ketones Urine 1+ mg/dL (Negative); Protein Urine 1+ mg/dL (Negative); Total Protein Urine Random < 5 mg/dL; Ur Ttl Prot Creatinine Ratio < 0.01 mg/mg (0-0.20); pH Urine 5.5 (5.0-9.0)
[2024-02-21 19:21] LABS: Bilirubin Urine 1+ (Negative); Color Urine Yellow (Yellow); Leukocyte Esterase Ur Negative LEU/UL (Negative); Nitrate Urine Negative (Negative); Urobilinogen Urine 0.2 mg/dL (<2.0)
[2024-02-21 19:32] LABS: Hepatitis B Surface Antigen Negative (Negative)
[2024-02-21 19:37] LABS: HAV RESULT Negative (Negative); Hepatitis B Core IgM Result Negative (Negative)
[2024-02-21 19:49] LABS: Hepatitis C Virus Antibody Negative (Negative)
== END 2024-02-21 08:23 | disposition home or self-care (01) ==
LOC: ANHGOSHLAB 08:24
PROVIDERS: PCP Emergency Medicine; Visit Provider Internal Medicine Nephrology
DX: N20.0 Calculus of kidney (principal); R74.8 Abnormal levels of other serum enzymes
CPT/HCPCS: 36415; 80069; 80074; 81001; 82570; 84156; 84550

== ENCOUNTER 2024-03-26 09:50 | Outpatient (CLI) | payer OTHER, SELFPAY ==
[2024-03-26 19:17] LABS: Appearance Urine Cloudy (Clear); Bacteria Urine Rare /hpf; Bilirubin Urine Negative (Negative); Blood Urine Trace (Negative); Color Urine Yellow (Yellow); Glucose Urine UA Negative (Negative); Ketones Urine 1+ mg/dL (Negative); Leukocyte Esterase Ur Negative LEU/UL (Negative); Nitrate Urine Negative (Negative); Non Pathogenic Casts 0-2; Protein Urine Negative (Negative); RBC Urine 0-2 /hpf (0-2); Specific Grav Ur 1.016 (1.001-1.035); Squamous Epithelial Cell Urine Many /hpf (Few); Urobilinogen Urine 0.2 mg/dL (<2.0); WBC Urine 0-5 /hpf (0-3); pH Urine 5.5 (5.0-9.0)
[2024-03-26 19:19] LABS: Add Urine Microscopic? YES
[2024-03-26 19:47] LABS: Albumin Level 4.5 g/dL (3.5-5.1); Anion Gap 10 mmol/L (4-12); Blood Urea Nitrogen 15 mg/dL (7-17); Calcium 9.5 mg/dL (8.4-10.2); Carbon Dioxide 33 mmol/L (22-30); Chloride 94 mmol/L (98-107); Estimated Glomerular Filt Rate > 60; Glucose 102 mg/dL (65-110); Phosphorus 2.9 mg/dL (2.5-4.5); Potassium 3.8 mmol/L (3.4-5.0); Sodium 137 mmol/L (137-145)
== END 2024-03-26 09:51 | disposition home or self-care (01) ==
LOC: ANHGOSHLAB 09:51
PROVIDERS: PCP Emergency Medicine; Visit Provider Internal Medicine Nephrology
DX: N20.0 Calculus of kidney (principal)
CPT/HCPCS: 36415; 80069; 81001

== ENCOUNTER 2024-09-01 08:52 | Outpatient (CLI) | payer OTHER, SELFPAY ==
[2024-09-01 12:45] LABS: Iron 70 ug/dL (37-170)
[2024-09-01 12:55] LABS: Percent Iron Saturation 19 % (20-50)
[2024-09-01 13:05] LABS: Free T4 Free Thyroxine 1.36 ng/dL (0.78-2.19)
[2024-09-01 13:15] LABS: Thyroid Stimulating Hormone 0.702 uIU/mL (0.465-4.680)
[2024-09-04 02:18] LABS: Triiodothyronine T3 Free 3.3 pg/mL (2.3-4.2)
== END 2024-09-01 08:53 | disposition home or self-care (01) ==
LOC: ANHGOSHLAB 08:53
PROVIDERS: PCP Nurse Practitioner Family; Visit Provider Nurse Practitioner Family
DX: E03.9 Hypothyroidism, unspecified (principal); G25.81 Restless legs syndrome
CPT/HCPCS: 36415; 82728; 83540; 83550; 84439; 84443; 84481

== ENCOUNTER 2024-09-01 10:29 | Outpatient (CLI) | payer OTHER, SELFPAY ==
--- NOTE | ~2024-09-01 | XR_ITS ---
EXAMINATION: XR abdomen/kub 1V DATE: 09/01/2024 10:53 INDICATION: Calculus of kidney. TECHNIQUE: A supine view of the abdomen on 2 radiographs was obtained. COMPARISON: CT abdomen and pelvis 05/24/2023, abdomen radiographs 05/24/2023 FINDINGS: There are no dilated loops of bowel. Surgical clips in the right upper quadrant are likely from cholecystectomy. There are phleboliths in left pelvis. IMPRESSION: 1. No visible urolithiasis. Reviewed, dictated and finalized at location [] [employer] IMPRESSION: 1. No visible urolithiasis.
== END 2024-09-01 10:30 | disposition home or self-care (01) ==
PROVIDERS: PCP Nurse Practitioner Family; Visit Provider Internal Medicine Nephrology
DX: N20.0 Calculus of kidney (principal)
CPT/HCPCS: 74018

== ENCOUNTER 2024-10-12 15:35 | Outpatient (CLI) | payer OTHER, SELFPAY ==
--- OUTSIDE RECORDS SUMMARY | 2024-10-12 15:39 | XMS_ITS | Clinical Summary ---
Author Organization [facility] Address [address] [place] [address] Care Team Providers Care Gasoline Engine Inspector Name Role Phone Sergo Samuel MD Primary Care Provider [phone] Allergies Active Allergy Reactions Criticality Noted Date Comments Amitriptyline Palpitations Low 11/14/2022 Doxycycline Hives Low 11/14/2022 Medications ADDERALL XR 30 MG 24 hr capsule Take 1 capsule (30 mg total) by mouth daily. 11/13/2022 Active atorvastatin (LIPITOR) 10 MG tablet Take 1 tablet (10 mg total) by mouth daily. 09/17/2022 Active Estradiol-Noret hindrone Acet 0.5-0.1 MG Tab Take 1 tablet by mouth daily. 09/20/2022 Active levothyroxine (SYNTHROID) 100 MCG tablet Take 1 tablet (100 mcg total) by mouth daily. 09/17/2022 Active metoprolol tartrate (LOPRESSOR) 25 MG tablet Take 2 tablets (50 mg total) by mouth 2 (two) times daily. 09/17/2022 Active triamterene-hyd roCHLOROthiazid e (MAXZIDE-25) 37.5-25 MG tablet Take 0.5 tablets by mouth daily. Active cetirizine (ZYRTEC) 10 MG tablet Take 1 tablet (10 mg total) by mouth daily. Active vitamin C (ASCORBIC ACID) 1000 MG tablet Take 1 tablet (1,000 mg total) by mouth daily. Active vitamin D3, cholecalciferol , 5000 UNITS capsule Take 1 capsule (5,000 Units total) by mouth daily. Active zinc gluconate 50 MG Tab Take 1 tablet (50 mg total) by mouth daily. Active magnesium oxide (MAG-OX) 400 (240 Mg) MG tablet Take 1 tablet (400 mg total) by mouth daily as needed. Active Active Problems Problem Noted Date Diagnosed Date Ureteral stone with hydronephrosis 11/16/2022 Sepsis (CMS/HCC HHS/HCC) 11/14/2022 Family History Medical History Relation Comments Kidney Disease Maternal Grandfather Liver cancer Mother Relation Status Comments Maternal Grandfather Mother Social History Tobacco Use Types Packs/Day Years Used Date Smoking Tobacco: Never Passive Smoke Exposure: Never Smokeless Tobacco: Never Tobacco Cessation:Counseling Given: Not Answered Alcohol Use Standard Drinks/Week Comments Not Currently 0 (1 standard drink = 0.6 oz pur e alcohol) Humiliation, Afraid, Rape, and Kick questionnair e Answer Date Recorded Within the last year, have y ou been afraid of your partner or ex-partner? No 11/14/2022 Within the last year, have y ou been humiliated or emotionally abused in other ways by your partner or ex-partner? No Within the last year, have y ou been kicked, hit, slapped, or otherwise physically hurt by your partner or ex-partner? No 11/14/2022 Within the last year, have y ou been raped or forced to have any kind of sexual activity by your partner or ex-partner? No 11/14/2022 Overall Financial Resource Strain (CARDIA) Answe r Date Recorded How hard is it for you to pa y for the very basics like food, housing, medical care, and heating? Not hard at all 11/14/2022 [facility] - Occupational Stress Questionnaire Answer Date Recorded Do you feel stress - tense, restless, nervous, or anxious, or unable to sleep at night because your mind is troubled all the time - these days? Not at all 11/14/2022 Hunger Vital Sign Answer Date Recorded Within the past 12 months, y ou worried that your food would run out before you got the money to buy more. Never true 11/15/19 23 Within the past 12 months, t he food you bought just didn't last and you didn't have money to get more. Never true 11/14/2022 PRAPARE - Transportation Answer Date Re corded In the past 12 months, has l ack of transportation kept you from medical appointments or from getting medications? No 10/31 In the past 12 months, has l ack of transportation kept you from meetings, work, or from getting things needed for daily living? No 11/14/2022 Housing Stability Vital Sign Answer Rory e Recorded In the last 12 months, was t here a time when you were not able to pay the mortgage or rent on time? No 11/14/2022 In the last 12 months, how many places have you lived? 1 11/14/2022 In the last 12 months, was t here a time when you did not have a steady place to sleep or slept in a m[facility] (including now)? No 11/14/2022 Comments No Sex and Gender Information Value Date Recorded Sex Assigned at Not on file Legal Sex Female 7:00 PM CDT Gender Identity Not on file Sexual Orientation Not on file Last Filed Vital Signs Vital Sign Reading Time Taken Comments Blood Pressure 124/65 11/16/2022 8:25 AM CDT Pulse 85 11/16/2022 8:25 AM CDT Temperature 36.5 C (97.7 F) 11/16/2022 8:25 AM CDT Respiratory Rate 22 11/16/2022 8:25 AM CDT Oxygen Saturation 97% 11/16/2022 8:25 AM CDT Inhaled Oxygen Concentration - - Weight 99.6 kg (219 lb 9.3 oz) 11/14/2022 9:52 P M CDT Height 165.1 cm (5' 5 ) 11/14/2022 9:52 PM CDT Body Mass Index 36.54 11/14/2022 9:52 PM CDT Plan of Treatment Health Maintenance Due Date Last Done Comments Colorectal Cancer Screening Colonoscopy (10 Years) 1970 Annual Physical 1973 Hepatitis C 01/26/1988 Hepatitis B Vaccines (1 of 3 - 19+ 3-dose series) 1989 Mammogram Screening 2010 Zoster Vaccines (1 of 2) 01/26/2020 COVID-19 Vaccine ( - season) 2024 12/07/2020, 11/16/2020 Influenza Adult (#1) 2024 06/28/2022, 10/02/2021, 06/24/2020, Additional history exists DTaP, Tdap and Td Vaccines (2 - Td or Tdap) 02/27/2032 02/26/2022 Meningococcal B Vaccine Aged Out No l onger eligible based on patient's age to complete this topic Meningococcal Vaccine Aged Out No nicolasa debi eligible based on patient's age to complete this topic Pneumococcal Vaccine: Pediatrics (0 to 5 Years) and At-Risk Patients (6 to 64 Years) Aged Out No longer eligible based on patient's age to complete this topic RSV Immunizations Under 20 Months Aged Out No longer eligible based on patient's age to complete this topic Goals Goal Patient Goal Type Associated Problems Recent Progress Patient-Stated? Author Family - family caregiver with be involved in care transitions and discharge planning Lifestyle No Marva Handy, RN Medical Devices Implanted Type Area Quality Control Lab Technician Device Identifier Shelf Expiration Date Model / Serial / Lot Stent Ureteral [place] Sci Contour Vl 4.8fr X 22-30cm - [id number] Implanted:Qty : 1 on 11/15/2022 by Alondra Blackmon MD at [facility] Stent Left: Ureter [employer] [id number] 07/04/2025 [id number] 50 / / [id number] Insurance Advance Directives * Full Code (Latest Code Status on File) Date Activated Date Inactivated Comments 11/14/2022 8:03 PM 11/16/2022 6:34 PM Care Teams Gasoline Engine Inspector Relationship Specialty Start Date End Date Sergo Samuel MD [address] [place] [address] PCP - General EMERGENCY MEDICINE 11/14/22
[2024-10-12 18:46] LABS: Hematocrit 42.5 % (37.0-47.0); Hemoglobin 14.2 g/dL (12.0-15.0); Mean Corpuscular HGB Conc 33.4 g/dl (32-36); Mean Corpuscular Hemoglobin 29.2 pg (26-34); Mean Corpuscular Volume 87.4 fl (80-100); Platelet Count Result 235 k/mm3 (150-375); Red Blood Count 4.86 M/mm3 (4.2-5.4); Red Cell Distribution Width 13.2 % (11.5-14.5); White Blood Count 7.7 K/mm3 (4.5-10.0)
[2024-10-12 18:47] LABS: Add Urine Microscopic? YES; Appearance Urine Cloudy (Clear); Bacteria Urine 1+ /hpf; Bilirubin Urine Negative (Negative); Blood Urine Negative (Negative); Color Urine Yellow (Yellow); Glucose Urine UA Negative (Negative); Ketones Urine Negative (Negative); Leukocyte Esterase Ur Negative LEU/UL (Negative); Nitrate Urine Negative (Negative); Non Pathogenic Casts 0-2; Protein Urine Negative (Negative); RBC Urine 0-2 /hpf (0-2); Squamous Epithelial Cell Urine Moderate /hpf (Few); Urobilinogen Urine 0.2 mg/dL (<2.0); WBC Urine 0-5 /hpf (0-3)
[2024-10-12 19:20] LABS: Albumin Level 4.3 g/dL (3.5-5.1); Anion Gap 8 mmol/L (4-12); Blood Urea Nitrogen 16 mg/dL (7-17); Calcium 9.6 mg/dL (8.4-10.2); Carbon Dioxide 35 mmol/L (22-30); Chloride 93 mmol/L (98-107); Estimated Glomerular Filt Rate > 60; Glucose 134 mg/dL (65-110); Phosphorus 3.2 mg/dL (2.5-4.5); Potassium 3.4 mmol/L (3.4-5.0); Sodium 136 mmol/L (137-145)
== END 2024-10-12 15:36 | disposition home or self-care (01) ==
LOC: ANHGOSHLAB 15:35
PROVIDERS: PCP Nurse Practitioner Family; Visit Provider Internal Medicine Nephrology
DX: N20.0 Calculus of kidney (principal)
CPT/HCPCS: 36415; 80069; 81001; 85027

== ENCOUNTER 2024-11-13 09:08 | Outpatient (CLI) | payer OTHER, SELFPAY ==
--- OUTSIDE RECORDS SUMMARY | 2024-11-13 09:32 | XMS_ITS | Clinical Summary ---
Author Organization [facility] Address [address] [place] [address] Care Team Providers Care Production Support Engineer Name Role Phone Sergo Samuel MD Primary Care Provider [phone] Allergies Active Allergy Reactions Criticality Noted Date [...] and heating? Not hard at all 11/14/2022 [facility] Occup[facility] Health - Occupational Stress [...] place to sleep or slept in a assisted (including now)? No 11/14/2022 Comments No Sex [...] Handy, RN Medical Devices Implanted Type Area Economics Consultant Device Identifier Shelf Expiration Date Model / Serial / Lot Stent Ureteral [place] Sci Contour Vl 4.8fr X 22-30cm - [id number] Implanted:Qty : 1 on 11/15/2022 by Alondra Blackmon MD at [facility] Stent Left: Ureter [employer] [id number] 07/04/2025 [id number] 50 / / [id number] Insurance Advance Directives * Full Code (Latest Code Status on File) Date Activated Date Inactivated Comments 11/14/2022 8:03 PM 11/16/2022 6:34 PM Care Teams Production Support Engineer Relationship Specialty Start Date End Date Sergo Samuel MD [address] [place] [address] PCP - General EMERGENCY MEDICINE 11/14/22
[2024-11-13 18:54] LABS: Anion Gap 7 mmol/L (4-12); Blood Urea Nitrogen 15 mg/dL (7-17); Calcium 9.2 mg/dL (8.4-10.2); Carbon Dioxide 34 mmol/L (22-30); Chloride 93 mmol/L (98-107); Estimated Glomerular Filt Rate > 60; Glucose 141 mg/dL (65-110); Potassium 3.1 mmol/L (3.4-5.0); Sodium 134 mmol/L (137-145)
== END 2024-11-13 09:09 | disposition home or self-care (01) ==
LOC: ANHGOSHLAB 09:09
PROVIDERS: PCP Emergency Medicine; Visit Provider Internal Medicine Nephrology
DX: N20.0 Calculus of kidney (principal)
CPT/HCPCS: 36415; 80048; 84550

== ENCOUNTER 2024-12-25 16:11 | Outpatient (CLI) | payer OTHER, SELFPAY ==
--- OUTSIDE RECORDS SUMMARY | 2024-12-25 16:14 | XMS_ITS | Clinical Summary ---
Author Organization [facility] Address [address] [place] [address] Care Team Providers Care Merchant Mariner Name Role Phone Sergo Samuel MD Primary Care Provider [phone] Allergies Active Allergy Reactions Criticality Noted Date [...] and heating? Not hard at all 11/14/2022 [facility] ional Health - Occupational Stress [...] place to sleep or slept in a snf (including now)? No 11/14/2022 Comments No Sex [...] 19+ 3-dose series) 1989 Mammogram Screening 2010 Pneumococcal Vaccine: 50+ Years (1 of 1 - PCV) 01/26/2020 Zoster Vaccines (1 of 2) 01/26/2020 COVID-19 Vaccine (3 - 2023-2 5 season) 2024 12/07/2020, 11/16/2020 DTaP, Tdap and Td Vaccines ( 2 - Td or Tdap) 02/27/2032 02/26/2022 Meningococcal B Vaccine Aged Out No l onger eligible based on patient's age to complete this topic Meningococcal Vaccine Aged Out No nicolasa debi eligible based on patient's age to complete this topic RSV Immunizations Under 20 Months Aged Out No longer eligible b ased on patient's age to complete this topic Goals Goal Patient Goal Type Associated Problems Recent Progress Patient-Stated? Author Family - family caregiver with be involved in care transitions and discharge planning Lifestyle No Marva Handy, RN Medical Devices Implanted Type Area Transmission Tester Device Identifier Shelf Expiration Date Model / Serial / Lot Stent Ureteral [place] Sci Contour Vl 4.8fr X 22-30cm - [id number] Implanted:Qty : 1 on 11/15/2022 by Alondra Blackmon MD at [facility] Stent Left: Ureter [employer] [id number] 07/04/2025 [id number] 50 / / [id number] Insurance Advance Directives * Full Code (Latest Code Status on File) Date Activated Date Inactivated Comments 11/14/2022 8:03 PM 11/16/2022 6:34 PM Care Teams Merchant Mariner Relationship Specialty Start Date End Date Sergo Samuel MD [address] [place] [address] PCP - General EMERGENCY MEDICINE 11/14/22
[2024-12-25 18:50] LABS: Albumin Level 4.3 g/dL (3.5-5.1); Anion Gap 7 mmol/L (4-12); Blood Urea Nitrogen 19 mg/dL (7-17); Calcium 9.6 mg/dL (8.4-10.2); Carbon Dioxide 34 mmol/L (22-30); Chloride 96 mmol/L (98-107); Estimated Glomerular Filt Rate > 60; Glucose 118 mg/dL (65-110); Phosphorus 3.3 mg/dL (2.5-4.5); Potassium 3.6 mmol/L (3.4-5.0); Sodium 137 mmol/L (137-145); Uric Acid 5.1 mg/dL (2.5-7.5)
== END 2024-12-25 16:12 | disposition home or self-care (01) ==
LOC: ANHGOSHLAB 16:12
PROVIDERS: PCP Nurse Practitioner Family; Visit Provider Internal Medicine Nephrology
DX: N20.0 Calculus of kidney (principal)
CPT/HCPCS: 36415; 80069; 84550

== ENCOUNTER 2025-04-08 08:41 | Outpatient (CLI) | payer OTHER, SELFPAY ==
[2025-04-08 13:19] LABS: Cholesterol 204 mg/dL (0-200); HDL Direct 46 mg/dL; Triglycerides 156 mg/dL (<150)
[2025-04-08 13:55] LABS: Thyroid Stimulating Hormone 0.805 uIU/mL (0.465-4.680)
[2025-04-09 10:37] LABS: Albumin Level 4.6 g/dL (3.5-5.1); Anion Gap 14 mmol/L (4-12); Blood Urea Nitrogen 16 mg/dL (7-17); Calcium 9.8 mg/dL (8.4-10.2); Carbon Dioxide 26 mmol/L (22-30); Chloride 95 mmol/L (98-107); Estimated Glomerular Filt Rate > 60; Glucose 70 mg/dL (65-110); Potassium 3.4 mmol/L (3.4-5.0); Sodium 135 mmol/L (137-145); Uric Acid 5.7 mg/dL (2.5-7.5)
== END 2025-04-08 08:42 | disposition home or self-care (01) ==
LOC: ANHGOSHLAB 08:42
PROVIDERS: PCP Nurse Practitioner Family; Visit Provider Nurse Practitioner Family
DX: N20.0 Calculus of kidney (principal); E78.2 Mixed hyperlipidemia; E03.9 Hypothyroidism, unspecified
CPT/HCPCS: 36415; 80061; 80069; 84443; 84550

== ENCOUNTER 2025-07-26 10:43 | Outpatient (NON) | payer OTHER, SELFPAY ==
--- OUTSIDE RECORDS SUMMARY | 2025-07-26 12:37 | XMS_ITS | Clinical Summary ---
Author Organization [facility] Address [address] [place] [address] Care Team Providers Care Human Factors Engineer Name Role Phone Sergo Samuel MD Primary Care Provider [phone] Allergies Active Allergy Reactions Criticality Noted Date [...] Date Ureteral stone with hydronephrosis 11/16/2022 Sepsis 11/14/2022 Family History Medical History Relation Comments [...] and heating? Not hard at all 11/14/2022 [facility] Occupat ional Health - Occupational Stress [...] place to sleep or slept in a intermediate (including now)? No 11/14/2022 Comments No Sex [...] P M CDT Height 165.1 cm (5' 5) 11/14/2022 9:52 PM CDT Body Mass Index [...] of 2) 01/26/2020 COVID-19 Vaccine (3 - season) 2025 12/07/2020, 11/16/2020 Influenza Adult (#1) 2025 06/28/2022, 10/02/2021, 06/24/2020, Additional history exists DTaP, Tdap and Td Vaccines (2 - Td or Tdap) 02/27/2032 02/26/2022 Hepatitis A Vaccines Aged Out No long er eligible based on patient's age to complete this topic Meningococcal B Vaccine Aged Out No l [...] Handy, RN Medical Devices Implanted Type Area Grinder Setup Operator Device Identifier Shelf Expiration Date Model / Serial / Lot Stent Ureteral [place] Sci Contour Vl 4.8fr X 22-30cm - [id number] Implanted:Qty : 1 on 11/15/2022 by Alondra Blackmon MD at [facility] Stent Left: Ureter [employer] [id number] 07/04/2025 [id number] 50 / / [id number] Insurance Advance Directives * Full Code (Latest Code Status on File) Date Activated Date Inactivated Comments 11/14/2022 8:03 PM 11/16/2022 6:34 PM Care Teams Human Factors Engineer Relationship Specialty Start Date End Date Sergo Samuel MD [address] [place] [address] PCP - General EMERGENCY MEDICINE 11/14/22
== END 2025-07-26 10:44 | disposition home or self-care (01) ==
LOC: ANHGOSHLAB 10:43
PROVIDERS: PCP Family Medicine; Visit Provider Family Medicine
DX: R30.0 Dysuria (principal); R31.9 Hematuria, unspecified
CPT/HCPCS: 87086

== ENCOUNTER 2025-08-24 10:58 | Outpatient (NON) | payer OTHER, SELFPAY ==
--- OUTSIDE RECORDS SUMMARY | 2025-08-24 11:27 | XMS_ITS | Clinical Summary ---
Author Organization [facility] Address [address] [place] [address] Care Team Providers Care Service Station Manager Name Role Phone Sergo Samuel MD Primary Care Provider [phone] Allergies Active Allergy Reactions Criticality Noted Date [...] and heating? Not hard at all 11/14/2022 [facility] Occupat ional Health - Occupational Stress [...] place to sleep or slept in a chcf (including now)? No 11/14/2022 Comments No Sex [...] Handy, RN Medical Devices Implanted Type Area Pulverizer Operator Device Identifier Shelf Expiration Date Model / Serial / Lot Stent Ureteral [place] Sci Contour Vl 4.8fr X 22-30cm - [id number] Implanted:Qty : 1 on 11/15/2022 by Alondra Blackmon MD at [facility] Stent Left: Ureter [place] [employer] [id number] 07/04/2025 [id number] 50 / / [id number] Insurance Advance Directives * Full Code (Latest Code Status on File) Date Activated Date Inactivated Comments 11/14/2022 8:03 PM 11/16/2022 6:34 PM Care Teams Service Station Manager Relationship Specialty Start Date End Date Sergo Samuel MD [address] [place] [address] PCP - General EMERGENCY MEDICINE 11/14/22
== END 2025-08-24 10:59 | disposition home or self-care (01) ==
LOC: ANHGOSHLAB 10:59
PROVIDERS: PCP Family Medicine; Visit Provider Nurse Practitioner Family
DX: R31.9 Hematuria, unspecified (principal)
CPT/HCPCS: 87086